=== PATIENT | male | born 1980 | race Hispanic/Latino ===

== ENCOUNTER 2017-10-22 23:35 | Emergency (ER) | payer OTHER, BC ==
[2017-10-22 23:43] VITALS: RESP 20; TEMP 98; O2SAT 100
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
[2017-10-23 01:49] VITALS: BP 128/82; PULSE 76
== END 2017-10-23 01:49 | disposition home or self-care (01) ==
LOC: H.ER 23:35
DX: F41.9 Anxiety disorder, unspecified (principal); V43.52XA Car driver injured in collision with other type car in traffic accident, initial encounter; Y92.410 Unspecified street and highway as the place of occurrence of the external cause